=== PATIENT | male | born 2000 | race African-American/Black ===

== ENCOUNTER 2024-11-16 09:59 | Emergency (ER) | payer OTHER, SELFPAY ==
[2024-11-16] VITALS (14 sets, daily range): BP systolic 158–187; BP diastolic 92–108; PULSE 55–70; RESP 13–21; TEMP 36.6–36.8; O2SAT 94–100; BMI 27.3
--- NOTE | 2024-11-16 10:01 | DI.RAD.S_ITS ---
PROCEDURE: XR CHEST 1V INDICATIONS: chest pain TECHNIQUE: One view of the chest was acquired. COMPARISON: None. FINDINGS: Surgical changes and devices: None. Lungs and pleura: Lungs are clear. No pleural effusions or pneumothorax. Mediastinum: Mediastinal contours appear normal. Heart size is normal. Bones and chest wall: No suspicious bony lesions. Overlying soft tissues appear unremarkable. IMPRESSION: No acute cardiopulmonary pathology. Dictated by: Gabriel Vargas M.D. on 11/16/2024 at 10:53 Approved by: Gabriel Vargas M.D. on 11/16/2024 at 10:53
--- NOTE | 2024-11-16 10:01 | ED_ITS ---
HPI - General Adult General Chief complaint: Chest Pain Stated complaint: high BP, sent by [facility] Time Seen by Provider: 11/16/24 10:01 History of Present Illness HPI narrative: 23-year-old gentleman adopted from [facility] as a child, grew up in the [place] states no medical issues up-to-date on immunizations. 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 About a month ago he began noticing increasing headaches, more exertional dyspnea, was told that he had a hemoglobin of 18 and sounds like he had a therapeutic blood draw. He is continued to have significant hypertension with diastolics in the 110 consistent range and systolics in the 210 in higher range. He has been having headaches, increasing fatigue denies fevers, vomiting, diarrhea. Is not note any obvious parasites in his stool. Does not recall any specific infection a month ago before all of his symptoms started. He is not specifically having heart palpitations Related Data Previous Rx's Medication Instructions Recorded amlodipine 10 mg tablet 10 mg PO DAILY #90 tabs 11/16/24 Allergies Allergy/AdvReac Type Severity Reaction Status Date / Time No Known Drug Allergies Allergy Verified 11/16/24 10:22 Review of Systems Review of Systems Narrative: Pertinent positive and negative findings as per HPI Patient History Medical History (Updated 11/16/24 @ 15:16 by Usha Baird MD) Blind left eye Social History Smoking Status: Never smoker Smoking Status: Never smoker Exam Initial Vital Signs Initial Vital Signs: Vital Signs Pulse Rate 70 11/16/24 10:03 Pulse Oximetry 100 11/16/24 10:03 General: Healthy appearing, in no acute distress. Able to give a complete and coherent history. Well-nourished well-developed HEENT: Moist mucous membranes, normal sclera with reactive pupils, Neck: No JVD, supple Respiratory: Lungs are clear to auscultation, no wheezing no rales no rhonchi. Full and symmetrical air movement Cardiac: Regular rate and rhythm with murmur and possible opening click appreciated Abdomen: Soft, nontender, good bowel tones, no flank pain, no hepatomegaly, no splenomegaly Skin: Warm and dry, no rashes Neurologic: Grossly neurologically intact with no obvious asymmetries or abnormalities Extremities: No trauma, well perfused Psych: Cooperative, appropriate insight and affect Course Orders Ordered: ED Orders 11/16/24 10:01 XR chest 1V Stat EKG-12 Lead Stat 11/16/24 10:15 Complete Blood Count AUTO DIFF Stat Comprehensive Metabolic Panel Stat Iron Profile (w/ % Saturation) Stat Lipase Stat Magnesium Stat NT-proBNP (BNP-Adult 18+) Stat PTT Partial Thromboplastin Pete Stat Prothrombin Time INR Stat TSH w/ Reflex to FT4 Stat Troponin & CK Cardiac Panel Stat 11/16/24 10:23 EC echo doppler complete Stat 11/16/24 10:40 Urinalysis and Microscopic Stat 11/16/24 11:41 CT head/brain wo con Stat 11/16/24 12:07 US renal doppler Stat Discontinued Medications Acetaminophen (Acetaminophen 325 Mg Tablet) 975 mg PO NOW ONE Stop: 11/16/24 12:20 Last Admin: 11/16/24 12:27 Dose: 975 mg Documented By: TEREZA Amlodipine Besylate (Amlodipine 5 Mg Tablet) 5 mg PO NOW ONE Stop: 11/16/24 12:08 Last Admin: 11/16/24 12:14 Dose: 5 mg Documented By: TEREZA Aspirin (Aspirin 81 Mg Chew Tab) 324 mg PO NOW ONE Stop: 11/16/24 10:02 Last Admin: 11/16/24 11:09 Dose: 324 mg Documented By: TEREZA Vital Signs Vital signs: Vital Signs - 8 hr 11/16/24 10:03 11/16/24 10:04 11/16/24 10:04 Temperature Pulse Rate 70 68 Respiratory Rate Blood Pressure 187/108 H Pulse Oximetry 100 100 Oxygen Delivery Method 11/16/24 10:23 11/16/24 10:30 11/16/24 10:30 Temperature 98.2 F Pulse Rate 64 59 L Respiratory Rate 16 Blood Pressure 187/108 H 165/98 H Pulse Oximetry 100 100 Oxygen Delivery Method Room Air 11/16/24 11:08 11/16/24 11:30 11/16/24 11:44 Temperature Pulse Rate 65 56 L Respiratory Rate 14 Blood Pressure 158/92 H Pulse Oximetry 99 Oxygen Delivery Method 11/16/24 11:44 11/16/24 12:00 11/16/24 12:00 Temperature Pulse Rate 65 57 L Respiratory Rate 13 13 Blood Pressure 158/98 H Pulse Oximetry 94 100 Oxygen Delivery Method 11/16/24 12:04 11/16/24 12:04 11/16/24 13:56 Temperature Pulse Rate 60 67 Respiratory Rate 17 15 Blood Pressure 167/96 H Pulse Oximetry 100 100 Oxygen Delivery Method 11/16/24 14:06 11/16/24 14:06 Temperature Pulse Rate 60 Respiratory Rate 13 Blood Pressure 167/96 H Pulse Oximetry 100 Oxygen Delivery Method Room Air Medical Decision Making Lab Data 11/16/24 10:15 11/16/24 10:15 Labs: Lab Results 11/16/24 11/16/24 Range/Units 10:15 10:40 WBC 5.8 (4.5-11.0) X10^3/uL RBC 5.13 (4.5-5.9) X10^6/uL Hgb 13.9 (13.5-17.5) g/dL Hct 42.6 (41-53) % MCV 83.0 (80-100) fL MCH 27.1 (26-34) PG MCHC 32.7 (30-36) % RDW 14.0 (11.6-14.8) % Plt Count 289 (150-400) X10^3/uL Neut % (Auto) 60.7 (50-75) % Lymph % (Auto) 26.9 (25-40) % [place] % (Auto) 8.1 (3-14) % Eos % (Auto) 3.6 (2-4) % Baso % (Auto) 0.7 (0-2) % Neut # (Auto) 3500 (4379-0184) /uL Lymph # (Auto) 1600 (8037-3638) /uL Carroll # (Auto) 500 (0-900) /uL Eos # (Auto) 200 (0-450) /uL Baso # (Auto) 0 (0-100) /uL PT 11.8 (9.4-12.5) SECONDS INR 1.0 (0.9-1.3) APTT 35 (25.1-36.5) SECONDS Sodium 138 (137-145) mmol/L Potassium 4.0 (3.4-5.1) mmol/L Chloride 101 (98-107) mmol/L Carbon Dioxide 28 (22-32) mmol/L BUN 18 (9-20) mg/dL Creatinine 1.44 H (0.66-1.25) mg/dL Estimated GFR > 60 (>60) mL/min BUN/Creatinine Ratio 12.5 (6-22) Glucose 117 H (70-100) mg/dL Calcium 9.8 (8.4-10.2) mg/dL Magnesium 1.5 L (1.6-2.3) mg/dL Iron 77 (49-181) ug/dL TIBC 303 (261-462) ug/dL % Saturation 25 (20-50) % Transferrin 237 (206-381) mg/dL Total Bilirubin 0.5 (0.2-1.3) mg/dL AST 38 (17-59) IU/L ALT 52 H (<50) IU/L Alkaline Phosphatase 53 (38-126) U/L Total Creatine Kinase 135 (55-170) U/L Troponin I < 0.012 (0.01-0.034) ng/mL NT-Pro-B Natriuret Pep < 20 (<125) pg/mL Total Protein 8.1 (6.3-8.2) g/dL Albumin 4.5 (3.5-5.0) g/dL Globulin 3.6 (1.7-4.1) g/dL Albumin/Globulin Ratio 1.3 (1.0-2.8) Lipase 33 (23-300) U/L TSH 1.40 (0.47-4.68) uIU/mL Urine Color Yellow Urine Appearance Clear Urine pH 7.0 (4.5-8.0) Ur Specific [place] 1.020 (1.000-1.035) Urine Protein Negative (Negative) Urine Glucose (UA) Negative (Negative) g/dL Urine Ketones Negative (NEGATIVE) Urine Occult Blood Negative (Negative) Urine Nitrate Negative (Negative) Urine Bilirubin Negative (NEGATIVE) Urine Urobilinogen 0.2 (0.2) E.U./dL Ur Leukocyte Esterase Negative (NEGATIVE) Urine RBC 0-1/hpf (0-5/HPF) Urine WBC None seen (0-5/HPF) Ur Squamous Epith Cells None seen (0-5/HPF) Urine Bacteria None seen (None) Ur Culture Indicated? Cult not indicated Vol Urine Centrifuged 10ml (spun) Imaging Data Renal ultrasound: Radiologist's Impression: PROCEDURE: US RENAL DOPPLER INDICATIONS: acute hypertension TECHNIQUE: Real time scanning was performed of both kidneys, followed by Color and pulsed Doppler interrogation of the renal vessels. COMPARISON: None. FINDINGS: Aortic peak systolic velocity: 72.3 cm/s. Right side: Landry-scale imaging: Kidney is 9.3 cm long. No hydronephrosis. No nephrolithiasis. Renal cortex is normal in echogenicity. No suspicious solid renal masses. Proximal renal artery peak systolic velocity: 46.7 cm/s. Mid renal artery peak systolic velocity: 141.3 cm/s. Distal renal artery peak systolic velocity: 126.2 cm/s. Renal vein: Patent, without thrombus. Peak renal/aortic ratio (RAR): 2.0 Left side: Landry-scale imaging: Kidney is 10.1 cm long. No hydronephrosis. No nephrolithiasis. Renal cortex is normal in echogenicity. No suspicious solid renal masses. Proximal renal artery peak systolic velocity: 55.9 cm/s. Mid-renal artery peak systolic velocity: 95.1 cm/s. Distal renal artery peak systolic velocity: 170 cm/s. Renal vein: Patent, without thrombus. Peak renal/aortic ratio (RAR): 2.4 IMPRESSION: No hemodynamically significant stenosis is seen in bilateral renal arteries. Dictated by: Gabriel Vargas M.D. on 11/16/2024 at 14:15 MDM Narrative Medical decision making narrative: CC: Hypertension, headaches Complicating co-morbidities: Acute onset within the last month, has been living in [facility] for the last year Data collected from: patient, mother Social determinants of health that may influence the patients condition: Significant travel in very underdeveloped areas of [place] Differential considered: Primary endocrine abnormality, cardiac pathology, renal artery stenosis, hemochromatosis, secondary effects of parasitic infection. Given his extensive travel and acute onset within the last month the differential is wide Exam documented above, pertinent findings include: Aside from a heart murmur appreciated, no other findings Lab Test results independently reviewed as above. Pertinent findings: Urine is unremarkable including lack of protein CBC is reassuring with normal H&H and normal differential Chemistries are notable for a creatinine at 1.44 with GFR greater than 60. Magnesium minimally low at 1.5. Remainder of electrolytes are reassuring. ALT is minimally elevated at 52 Troponin is undetectable BNP is reassuring Lipase is normal TSH is normal Independently reviewed EKG: Rate of 67, no acute ischemic changes, no suggestion of RVH Imaging studies independently reviewed: CT scan of the head is done for headache, no acute findings Chest x-ray shows no cardiomegaly or infiltrates renal ultrasound does not show significant pathology Consultations: Treatments: Amlodipine 5 mg Re-evaluations: Blood pressure is down to 165/98, we will hold on IV hypertensive medications and re-evaluate as further workup return Discussion: Otherwise healthy 23-year-old gentleman renetta from [facility], active, no recreational drug use with acute onset significant hypertension in the last month with the associated headaches and has been told that his hemoglobin was as high as 18 with recent therapeutic blood draw. Given the acute onset, persistent headache, overall good lifestyle choices with avoiding smoking, alcohol, recreational drugs and highly processed foods wide differential was considered. With the history of the significantly elevated hemoglobin and newly appreciated heart murmur on exam more thorough workup was undertaken. No evidence of intracranial abnormalities on CT scan, echocardiogram is reportedly normal, EKG is unremarkable, cardiac markers are reassuring. CBC is reassuring, no thyroid abnormalities, no proteinuria. Noted was slightly elevated ALT at 52, and creatinine at 1.44, remainder of electrolytes are reassuring arguing against neuroendocrine abnormality. Ultrasound of the kidneys does not show any obvious secondary source for elevated blood pressure. With all secondary sources of dramatic hypertension ruled out have to assume that this is severe primary hypertension currently untreated. Blood pressure currently 158/90 and headache continues. We will recommend amlodipine 5 mg daily, buying a blood pressure cuff with daily blood pressure checks and follow up with an outpatient physician to review blood pressure readings and help further manage medications. Patient understands his goal blood pressure is 120/70 Discharge Plan Departure Patient Disposition: Home Clinical Impression: Hypertension Qualifiers: Hypertension type: primary hypertension Qualified Code(s): I10 - Essential (primary) hypertension Headache Qualifiers: Headache type: unspecified Headache chronicity pattern: episodic headache I ntractability: not intractable Qualified Code(s): R51.9 - Headache, unspecified Instructions: DI for High Blood Pressure Activity Restrictions/Additional Instructions: Thank you for coming in today We did an extremely thorough workup for all the secondary causes of high blood pressure that can and should be immediately treated. You show no signs of infection, your blood counts are very appropriate today, kidney function is normal but I am concerned that it is in the higher end of normal, liver function is nice and normal There was no sign of heart attack or enlarged heart, your EKG does not suggest severe long-term high blood pressure yet. Because of the heart murmur I noticed we did do an echocardiogram in the emergency department did not did not show life-threatening abnormalities. We did not ultrasound to look at your kidneys, they look nice and normal and the blood vessels going to your kidneys are also normal Given this, I suspect that your blood pressure has been higher for longer than you have been aware. Having blood pressure this elevated at 25 can cause significant problems if it is not continually treated. I gave you a small dose of amlodipine and after 3 hours it had minimal effect, I am going to send you home with a prescription for 10 mg of amlodipine for blood pressure control. I am hoping that over the next 3-4 days your blood pressure continues to trend down. Your goal is 120/70. This may end up being blood pressure that is quite difficult to control and you may end up on multiple medications. It is very important to prevent heart attacks, strokes, kidney failure that leads to dialysis, blood vessel problems that could lead to permanent impotence, blood vessel problems that lead to chronic pain and amputation of toes. You do need to establish with a primary care physician and you do need to get into see them. You also need to buy a blood pressure cuff. I would recommend that you check your blood pressure once a day 2-3 hours after you take the amlodipine and keep track of the numbers. You may also note if you had a headache to see if there is correlation between your headaches and your elevated blood pressures If you find that you are getting worse or develop any new symptoms, please feel free to return to the emergency department for further evaluation. Prescriptions: New amlodipine 10 mg tablet 10 mg PO DAILY Qty: 90 1RF Stand Alone Forms: Patient Portal/API/Survey
--- NOTE | 2024-11-16 10:05 | EKG_ITS ---
[address] [address] Test Date: 2024-11-16 Pat Name: Shahid Love Department: Room: Gender: Male Energy Assistant: NASIR : 2000 Requested By: Order Number: [id number] Reading MD: Loki Quinn Measurements Intervals [place] Rate: 67 P: 30 DE: 186 QRS: 50 QRSD: 88 T: 12 QT: 374 QTc: 395 Interpretive Statements Normal sinus rhythm Electronically Signed On 11-16-2024 14:35:58 PDT by Loki Quinn
--- NOTE | 2024-11-16 10:23 | DI.ECHO.S_ITS ---
[facility] : : [address] : : [place] : : [id number] : : Phone: [phone] Echocardiogram Report + + :Name: DAVID FORRESTER Study Date: 11/16/2024 Height: 68 in : :[facility] ReadingLocation: : : Gender: Male : :: 2000 Age: 23 yrs BP: 187/108 mmHg: :Reason For Study: [place], HYPERTENSION : :Ordering Physician: CAMMY, : :SANDRA Kilpatrick Performed By: Di Simeon : :Referring: SANDRA CHAWLA : + + Interpretation Summary The left ventricle is normal in size and wall thickness. The left ventricular ejection fraction is normal. The ejection fraction is estimated to be 65-70%. The right ventricle is normal in size and function. No significant valvular pathology seen The IVC is of normal diameter and collapses greater than 50% with a sniff. This suggests a low right atrial pressure of 3 mm Hg. No significant ascending aorta or aortic arch pathology. There is no significant increase Doppler velocity in early part of descending thoracic aorta. Ascending aorta and aortic arch appears to be normal in size. BP: 187/108 mmHg Procedure: A two-dimensional transthoracic echocardiogram with color flow and Doppler was performed. The study quality was technically good. There is no prior echocardiogram noted for this patient. The patient was in sinus bradycardia with heart rates between 56-63 bpm during the exam. Left Ventricle: The left ventricle is normal in size and wall thickness. There is no thrombus. A false chord is noted (normal variant). The ejection fraction is estimated to be 65-70%. The left ventricular ejection fraction is normal. There are no focal wall motion abnormalities. Diastolic parameters suggest probable normal left ventricular diastolic function and normal filling pressures. Right Ventricle: The right ventricle is normal in size and function. Atria: The left atrial size is normal. Right atrial size is normal. There is no Doppler evidence for an interatrial shunt. Mitral Valve: The mitral valve leaflets appear to open well. The mitral valve is normal. There is no mitral regurgitation noted. Aortic Valve: The aortic valve is trileaflet. The aortic valve opens well. There is no aortic valve stenosis. No aortic regurgitation is present. Tricuspid Valve: The tricuspid valve leaflets are thin and pliable. There is trace tricuspid regurgitation. Pulmonary artery pressures cannot be estimated because of the lack of a measurable TR jet velocity. Pulmonic Valve: The pulmonic valve leaflets are thin and pliable; valve motion is normal. There is no pulmonic valvular regurgitation. Great Vessels: The aortic root is normal size. The dimensions of the ascending aorta are normal. The IVC is of normal diameter and collapses greater than 50% with a sniff. This suggests a low right atrial pressure of 3 mm Hg. Pericardium/ Pleura There is no pericardial effusion. There is no pleural effusion. MMode/2D Measurements & Calculations LVIDd: 4.6 cm LVOT diam: 2.1 cm LVIDs: 2.9 cm Ao root diam: 2.7 cm FS: 36.6 % asc Aorta Diam: 2.5 cm EPSS: 0.86 cm Ao Arch Diam (Prox Trans): 2.7 cm IVSd: 0.97 cm LVPWd: 0.76 cm LA dimension: 3.3 cm RA long axis: 4.2 cm LA A2 area: 15.3 cm2 RA area: 12.6 cm2 LA A4 area: 11.7 cm2 RA vol: 32.2 ml LA length (vol): 4.3 cm IVC diam: 1.5 cm LA vol: 35.2 ml RVD1 (basal): 3.9 cm RVD2 (mid): 3.3 cm TAPSE: 2.2 cm Doppler Measurements & Calculations Ao V2 max: 129.0 cm/sec LVOT Max Keaton: 96.3 cm/sec Ao V2 mean: 86.0 cm/sec LV V1 max P.7 mmHg Ao max P.7 mmHg LV V1 VTI: 19.3 cm Ao mean P.3 mmHg LEILA(I,D): 2.7 cm2 Ao V2 VTI: 24.4 cm LEILA(V,D): 2.5 cm2 sev ratio: 0.79 MV E max keaton: 86.1 cm/sec PA V2 max: 140.4 cm/sec MV A max keaton: 72.1 cm/sec PA V2 mean: 94.9 cm/sec MV E/A: 1.2 PA mean P.1 mmHg Med Peak E' Keaton: 10.6 cm/sec PA pr(Accel): 26.3 mmHg E/E' med: 8.1 Lat Peak E' Keaton: 17.0 cm/sec E/E' lat: 5.1 E/e' average: 6.6 MV dec time: 0.19 sec Pulm A Revs Keaton: 26.8 cm/sec SV(LVOT): 65.8 ml Pulm A Revs Dur: 0.09 sec Reading Physician:12:59 PM
[2024-11-16 10:25] LABS: Add Manual Diff / Slide Review NO; Basophils Absolute Auto 0 /uL (0-100); Basophils Percent Auto 0.7 % (0-2); Eosinophils Absolute Auto 200 /uL (0-450); Eosinophils Percent Auto 3.6 % (2-4); Hematocrit 42.6 % (41-53); Hemoglobin 13.9 g/dL (13.5-17.5); Lymphocytes Absolute Auto 1600 /uL (1100-4500); Lymphocytes Percent Auto 26.9 % (25-40); Mean Corpuscular HGB Conc 32.7 % (30-36); Mean Corpuscular Hemoglobin 27.1 PG (26-34); Monocytes Absolute Auto 500 /uL (0-900); Monocytes Percent Auto 8.1 % (3-14); Neutrophils Absolute Auto 3500 /uL (1500-7000); Neutrophils Percent Auto 60.7 % (50-75); Platelet Count 289 X10^3/uL (150-400); Red Blood Cell Count 5.13 X10^6/uL (4.5-5.9); White Blood Cell Count 5.8 X10^3/uL (4.5-11.0)
[2024-11-16 10:32] LABS: Prothrombin Time 11.8 SECONDS (9.4-12.5)
--- NOTE | 2024-11-16 10:32 | PC.NURSE ---
No cough. Mild SOB? No CP. States he has been having headache but none right now. States he has been feeling more tired. See triage for more information.
[2024-11-16 10:34] LABS: PTT Partial Thromboplastin Tim 35 SECONDS (25.1-36.5)
[2024-11-16 10:36] LABS: Alanine Aminotransferase 52 IU/L (<50); Albumin 4.5 g/dL (3.5-5.0); Albumin Globulin Ratio 1.3 (1.0-2.8); Alkaline Phosphatase 53 U/L (38-126); Aspartate Aminotransferase 38 IU/L (17-59); BUN Creatinine Ratio 12.5 (6-22); Bilirubin Total 0.5 mg/dL (0.2-1.3); Blood Urea Nitrogen 18 mg/dL (9-20); Calcium 9.8 mg/dL (8.4-10.2); Carbon Dioxide 28 mmol/L (22-32); Chloride 101 mmol/L (98-107); Creatine Kinase 135 U/L (55-170); Estimated Glomerular Filt Rate > 60 mL/min (>60); Globulin 3.6 g/dL (1.7-4.1); Glucose 117 mg/dL (70-100); HEMOLYSIS < 15 (0-50); Lipase 33 U/L (23-300); Magnesium 1.5 mg/dL (1.6-2.3); Sodium 138 mmol/L (137-145); Total Protein 8.1 g/dL (6.3-8.2)
[2024-11-16 10:47] LABS: NT-proBNP (BNP-Adult 18+) < 20 pg/mL (<125); Troponin I < 0.012 ng/mL (0.01-0.034)
[2024-11-16 10:52] LABS: HEMOLYSIS < 15 (0-50); Iron 77 ug/dL (49-181)
[2024-11-16 11:00] LABS: Appearance Urine UA CLEAR; Bilirubin Urine UA NEGATIVE (NEGATIVE); Color Urine UA YELLOW; Glucose Urine UA NEGATIVE (Negative); Ketones Urine UA NEGATIVE (NEGATIVE); Leukocyte Esterase Urine UA NEGATIVE (NEGATIVE); Nitrite Urine UA NEGATIVE (Negative); Occult Blood Urine UA NEGATIVE (Negative); Protein Urine UA NEGATIVE (Negative); Urobilinogen Urine UA 0.2 E.U./dL (0.2)
[2024-11-16 11:04] LABS: Percent Iron Saturation 25 % (20-50); Total Iron Binding Capacity 303 ug/dL (261-462); Transferrin 237 mg/dL (206-381)
[2024-11-16 11:05] LABS: RBC Urine 0-1/HPF (0-5/HPF); Urine Volume 10mL (spun); WBC Urine None Seen (0-5/HPF)
[2024-11-16 11:06] LABS: Bacteria Urine None Seen; Culture Indicated Urine Cult Not Indicated; Squamous Epithelial Cell Urine None Seen (0-5/HPF)
[2024-11-16] MEDS: ASPIRIN 81 MG CHEW TAB 324 MG PO (11:09)
--- NOTE | 2024-11-16 11:41 | DI.CT.S_ITS ---
PROCEDURE: CT HEAD/BRAIN WO CON INDICATIONS: headache, hypertensio TECHNIQUE: Noncontrast 4.5 mm thick angled axial sections acquired from the foramen magnum to the vertex, with coronal and sagittal reformats. For radiation dose reduction, the following was used: automated exposure control, adjustment of mA and/or kV according to patient size. COMPARISON: None. FINDINGS: Image quality: Diagnostic. CSF spaces: Basal cisterns are patent. No extra-axial fluid collections. Ventricles are normal in size and shape. Brain: No midline shift. No intracranial masses or hemorrhage. Landry-white matter interface is normal. Skull and face: Calvarium and visualized facial bones are intact, without suspicious lesions. Sinuses: Visualized sinuses demonstrates mild mucosal thickening predominantly in the left maxillary sinus. IMPRESSION: No acute intracranial pathology. Dictated by: Christiane Gonsales M.D. on 11/16/2024 at 11:50 Approved by: Christiane Gonsales M.D. on 11/16/2024 at 11:51
--- NOTE | 2024-11-16 12:07 | DI.US.S_ITS ---
PROCEDURE: US RENAL DOPPLER INDICATIONS: acute hypertension TECHNIQUE: Real time scanning was performed of both kidneys, followed by Color and pulsed Doppler interrogation of the renal vessels. COMPARISON: None. FINDINGS: Aortic peak systolic velocity: 72.3 cm/s. Right side: Landry-scale imaging: Kidney is 9.3 cm long. No hydronephrosis. No nephrolithiasis. Renal cortex is normal in echogenicity. No suspicious solid renal masses. Proximal renal artery peak systolic velocity: 46.7 cm/s. Mid renal artery peak systolic velocity: 141.3 cm/s. Distal renal artery peak systolic velocity: 126.2 cm/s. Renal vein: Patent, without thrombus. Peak renal/aortic ratio (RAR): 2.0 Left side: Landry-scale imaging: Kidney is 10.1 cm long. No hydronephrosis. No nephrolithiasis. Renal cortex is normal in echogenicity. No suspicious solid renal masses. Proximal renal artery peak systolic velocity: 55.9 cm/s. Mid-renal artery peak systolic velocity: 95.1 cm/s. Distal renal artery peak systolic velocity: 170 cm/s. Renal vein: Patent, without thrombus. Peak renal/aortic ratio (RAR): 2.4 IMPRESSION: No hemodynamically significant stenosis is seen in bilateral renal arteries. Dictated by: Gabriel Vargas M.D. on 11/16/2024 at 14:15 Approved by: Gabriel Vargas M.D. on 11/16/2024 at 14:19
[2024-11-16] MEDS: AMLODIPINE 5 MG TABLET PO ×2 (12:14→15:29)
[2024-11-16] MEDS: ACETAMINOPHEN 325 MG TABLET 975 MG PO (12:27)
--- NOTE | 2024-11-16 13:36 | PC.NURSE ---
Pt left at 1300 of [facility] for imaging. Per [facility] imaging should take about 1 hour or slightly more.
--- NOTE | 2024-11-16 20:33 | PC.NURSE ---
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 Pharmacist stated that Rx is available and they will work on filling it now. They stated that it was registered under wrong birthdate with them
== END 2024-11-16 15:43 | disposition home or self-care (01) ==
PROVIDERS: Emergency Provider Emergency Medicine
DX: I10 Essential (primary) hypertension (principal); R51.9 Headache, unspecified
CPT/HCPCS: 36415; 70450; 71045; 80053; 81001; 82550; 83540; 83550; 83690; 83735; 83880; 84443; 84484; 85025; 85610; 85730; 93005; 93306; 93975; 99284